=== PATIENT | male | born 1980 | race Caucasian/White ===

== ENCOUNTER 2016-08-09 16:08 | Emergency (ER) | payer MEDICARE ==
[~2016-08-09 16:08] MED LIST: IBUPROFEN800 MG PO; LEVAQUIN500 MG PO; NEURONTIN300 MG PO; NICODERM 21MG PA1 EA TD; TAMIFLU75 MG PO; TRAZODONE HCL100 MG PO; TYLENOL325 M1 PO; ULTRAM50 MG PO; VENTOLIN HFA8 GM INH; ZESTRIL40 MG PO
== END 2016-08-09 18:24 | disposition home or self-care (01) ==
LOC: ER 16:08
DX: T81.31XA Disruption of external operation (surgical) wound, not elsewhere classified, initial encounter (principal); Z98.890 Other specified postprocedural states; Z90.49 Acquired absence of other specified parts of digestive tract; I10 Essential (primary) hypertension; Z79.899 Other long term (current) drug therapy
CPT/HCPCS: 99282; 99283